=== PATIENT | female | born 1960 | race Caucasian/White ===

== ENCOUNTER 2016-10-03 16:36 | Emergency (ER) | payer OTHER ==
[~2016-10-03] VITALS: Ht 162.6 cm; Wt 72.6 kg
[2016-10-03 16:46] VITALS: BP 118/52
--- NOTE | 2016-10-03 18:46 | NUR ---
PT AMBULATED TO BED 5
--- NOTE | 2016-10-03 18:49 | NUR ---
PATIENT PRESENTS TO ED WITH 1 INCH LAC OVER RIGHT SIDE OF SCALP , NO HEMATOMA, NO SANGUINEOUS DRAINAGE NOTED . PT STATES ACCIDENTLY INJURED SELF WHILE CLEANING CLOSET AT HOME YESTERDAY . DENIES N/V/D; SKIN IS PINK/WARM/DRY; AAOX4 WITH EVEN AND STEADY GAIT; LUNGS CLEAR BL; HR EVEN AND REGULAR; PT DENIES ANY FEVER, CP, SOB, OR COUGH AT THIS TIME; PATIENT STATES PAIN OF 0/10 AT THIS TIME; VSS; PATIENT POSITIONED FOR COMFORT; HOB ELEVATED; BEDRAILS UP X2; BED DOWN. ER MD MADE AWARE OF PT STATUS.
--- NOTE | 2016-10-03 19:09 | NUR ---
Pt report given to CLIFFORD PAYTON. Transfer of care at this time.
--- NOTE | 2016-10-03 19:15 | NUR ---
REPORT RECEIVED FROM CLIFFORD STACY
--- NOTE | 2016-10-03 20:05 | NUR ---
DR JEFFERS AT BEDSIDE
[2016-10-03 20:15] VITALS: BP 135/75
--- NOTE | 2016-10-03 20:15 | NUR ---
Patient discharged with v/s stable. Written and verbal after care instructions given and explained. Patient verbalized understanding. Ambulatory with steady gait. All questions addressed prior to discharge. Advised to follow up with PMD.
== END 2016-10-03 20:15 | disposition home or self-care (01) ==
LOC: MED 16:36
DX: S01.01XA Laceration without foreign body of scalp, initial encounter (principal); Z88.0 Allergy status to penicillin; W20.8XXA Other cause of strike by thrown, projected or falling object, initial encounter; Y93.E9 Activity, other interior property and clothing maintenance; Y92.009 Unspecified place in unspecified non-institutional (private) residence as the place of occurrence of the external cause; Y99.8 Other external cause status
CPT/HCPCS: 99283